=== PATIENT | female | born 1945 | race Caucasian/White ===

== ENCOUNTER 2020-04-03 06:09 | Inpatient (IN) | payer MEDICARE, OTHER ==
[~2020-04-03 06:09] MED LIST: Famotidine 20 MG/2 ML SDV IVPUSH SCH; Famotidine 20 MG/2 ML SDV ONE; Lactated Ringers 1,000 ML IV SCH; Ropivacaine 49.25 ML, Ketorolac 30 MG, EPINEPHrine 0.5 MG, cloNIDine 80 MCG in Sodium C... INJECT SCH; Scopolamine 1.5 MG Transdermal Patch TRDERM SCH
[2020-04-03] MEDS ORDERED: Propofol 200 MG/20 ML SDV ONE (07:22)
[2020-04-03] MEDS ORDERED: fentaNYL 100 MCG/2 ML SDV ONE (07:23)
[2020-04-03] MEDS ORDERED: Midazolam 1 MG/ML 2 ML SDV ONE (07:24)
[2020-04-03] MEDS ORDERED: Lidocaine 2% 5 ML SDV ONE (07:24)
--- NOTE | 2020-04-03 07:24 | PCM.PREANE ---
Preanesthetic Assessment - Anesthesia/Transfusion/Family Hx Anesthesia History: Prior Anesthesia Without Reaction Family History of Anesthesia Reaction: No Transfusion History: Unknown - Review of Systems General: No Symptoms Pulmonary: No Symptoms Cardiovascular: No Symptoms Gastrointestinal: No Symptoms Neurological: No Symptoms Other: Reports: None - Physical Assessment NPO Status Date: 04/02/20 Vital Signs: Last Vital Signs Temp 96.3 F L 04/03/20 06:23 Pulse 87 04/03/20 06:23 Resp 14 04/03/20 06:23 BP 141/92 H 04/03/20 06:23 Pulse Ox 93 L 04/03/20 06:23 Height: 5 ft 5 in Weight: 99.79 kg ASA Class: 2 Mental Status: Alert & Oriented x3 Airway Class: Mallampati = 2 Dentition: Reports: Normal Dentition ROM/Head Extension: Full Lungs: Clear to Auscultation, Normal Respiratory Effort Cardiovascular: Regular Rate, Regular Rhythm - Allergies Allergies/Adverse Reactions: Allergies Allergy/AdvReac Type Severity Reaction Status Date / Time No Known Allergies Allergy Verified 04/03/20 06:45 - Blood Blood Available: No - Anesthesia Plan Pre-Op Medication Ordered: None - Acknowledgements Anesthesia Type Planned: Spinal Pt an Appropriate Candidate for the Planned Anesthesia: Yes Alternatives and Risks of Anesthesia Discussed w Pt/Guardian: Yes Pt/Guardian Understands and Agrees with Anesthesia Plan: Yes Additional Comments: PMH: psvt, mild MR, cleared by Deep, he believes no hx of AMI, neg stress test. 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: Musculoskeletal History: Reports: Fracture, Osteoarthritis Other Musculoskeletal History: hx of fx foot Neurological History: Reports: None Psychiatric History: Reports: Anxiety Endocrine/Metabolic History: Reports: Obesity/BMI 30+ Hematologic History: Reports: None Immunologic History: Reports: None Oncologic (Cancer) History: Reports: None Dermatologic History: Reports: None - Infectious Disease History Infectious Disease History: Reports: Chicken Pox, Measles - Past Surgical History Head Surgeries/Procedures: Reports: None HEENT Surgical History: Reports: Tonsillectomy Respiratory Surgical History: Reports: None GI Surgical History: Reports: Appendectomy, Colonoscopy Female Surgical History: Reports: Tubal Ligation Other Female Surgeries/Procedures: Ureteral Reimplantation Musculoskeletal Surgical History: Reports: Knee Replacement - SUBSTANCE USE Smoking Status *Q: Former Smoker Tobacco Use Within Last Twelve Months: No Recreational Drug Use History: No - HOME MEDS Home Medications: Home Meds Acetaminophen with Codeine [Tylenol with Codeine #3 Tablet] 1 tab PO BID PRN 03/28/20 [History] Metoprolol Succinate [Toprol XL] 25 mg PO QAM 03/28/20 [History] Omeprazole 20 mg PO QAM 03/28/20 [History] Rosuvastatin Calcium 20 mg PO QAM 03/28/20 [History] - CURRENT (IN HOUSE) MEDS Current Meds: Current Medications Tranexamic Acid 1,000 mg/ (Sodium Chloride) 110 mls @ 600 mls/hr IV ASDIRECTED ONE Stop: 04/03/20 08:10 Ropivacaine 49.25 ml/Ketorolac Tromethamine 30 mg/Epinephrine HCl 0.5 mg/Clonidine HCl 80 mcg/ Sodium Chloride 75 mls @ 50 mls/sec INJECT ASDIRECTED ADRIANA Cefazolin Sodium/Dextrose 2 gm (/ Premix) 50 mls @ 100 mls/hr IV ONCALL ADRIANA Lactated Ringer's (Ringers, Lactated) 1,000 mls @ 100 mls/hr IV ASDIRECTED ADRIANA Last Admin: 04/03/20 06:52 Dose: 100 mls/hr Documented by: Famotidine 40 mg/ Sodium (Chloride) 20 mls @ 300 mls/hr IV ONARRIVE ONE Stop: 04/03/20 09:03 Scopolamine (Transderm-Scop) 1.5 mg TRDER ONARRIVE [facility] Last Admin: 04/03/20 06:56 Dose: 1.5 mg Documented by: Discontinued Medications Famotidine (Pepcid) 40 mg IVPUSH ONARRIVE [facility] Famotidine (Pepcid) Confirm Administered Dose 40 mg .ROUTE .STK-MED ONE Stop: 04/03/20 05:49 Last Admin: 04/03/20 06:55 Dose: 40 mg Documented by:
[2020-04-03] MEDS ORDERED: ceFAZolin/Dextrose,Iso-Osmotic 2 GM/50 ML Duplex Bag IV ONE (07:32)
[2020-04-03] MEDS ORDERED: Tranexamic Acid 1,000 MG in Sodium Chloride 0.9% 100 ML IV ONE (08:00)
[2020-04-03] MEDS ORDERED: ceFAZolin 2 GM in Premix Bag 1 BAG IV SCH (08:00)
[2020-04-03] MEDS ORDERED: Naloxone 0.4 MG/ML Syringe IVPUSH PRN (08:46)
[2020-04-03] MEDS ORDERED: EPINEPHrine 1:10,000 1 MG/10 ML Syringe IVPUSH PRN (08:46)
[2020-04-03] MEDS ORDERED: Albuterol 0.083% 2.5 MG/3 ML Neb Soln NEB PRN (08:46)
[2020-04-03] MEDS ORDERED: Atropine 0.1 MG/ML 10 ML Syringe IVPUSH PRN ×2 (08:46)
[2020-04-03] MEDS ORDERED: 50% Dextrose in Water 50 ML Syringe IVPUSH PRN (08:46)
[2020-04-03] MEDS ORDERED: SODIUM CHLORIDE 0.9% IV ONE (09:00)
[2020-04-03] MEDS ORDERED: FAMOTIDINE IV ONE (09:00)
[2020-04-03] MEDS ORDERED: Sodium Chloride 0.9% 2.5 ML Syringe FLUSH PRN (10:45)
[2020-04-03] MEDS ORDERED: Docusate Sodium 100 MG Cap PO PRN (10:45)
[2020-04-03] MEDS ORDERED: diphenhydrAMINE 25 MG Cap PO PRN (10:45)
[2020-04-03] MEDS ORDERED: Bisacodyl 10 MG Supp RECTAL PRN (10:45)
[2020-04-03] MEDS ORDERED: Aluminum Hydroxide/Magnesium Hydroxide/Simethicone Susp 30 ML Cup PO PRN (10:45)
[2020-04-03] MEDS ORDERED: Ondansetron 4 MG/2 ML SDV IVPUSH PRN (10:45)
[2020-04-03] MEDS ORDERED: Sodium Chloride 0.9% 10 ML Syringe FLUSH PRN (10:45)
--- NOTE | 2020-04-03 11:09 | CR ---
Left knee: AP and crosstable lateral views left knee were obtained. Comparison: Prio knee exam of 02/22/20. Knee prosthesis is seen. Components are aligned. Soft tissue air is noted from the surgical procedure. Underlying bony structures are intact. Impression: 1. Satisfactory postop radiographic appearance of recently placed left knee prosthesis. Diagnostic code #2 This report was dictated in MDT
--- NOTE | 2020-04-03 11:18 | PCM.OPNOTE ---
- General Post-Op/Procedure Note Date of Surgery/Procedure: 04/03/20 Operative Procedure(s): Left total knee arthroplasty Findings: Left knee medial compartment femur and tibia grade 4 arthritis with bony erosion of tibial plateau Lateral compartment femoral and tibial cartilage grade 1 Patellofemoral articular cartilage grade 1 Pre Op Diagnosis: Knee grade 4 medial compartment osteoarthritis Post-Op Diagnosis: Knee grade 4 medial compartment osteoarthritis Anesthesia Technique: Spinal Primary Surgeon: Rashawn Barahona Wrapper Sizer: Rebecca Pierson Wrapper Sizer Was Necessary: Retraction EBL in mLs: 10 Complications: None Condition: Good Free Text/Narrative:: Risks and benefits of total knee arthroplasty were discussed with the patient. Because of knee pain and diminished quality of life, the patient elected to proceed with surgery. Patient was taken to the operating room. After adequate spinal anesthesia, she was placed in a supine position. Tourniquet was placed from the left proximal thigh. Left lower extremity is prepped and draped in usual sterile manner. The leg elevated and the tourniquet inflated. Midline incision was made with a scalpel. Subcutaneous tissue incised electrocautery. Medial parapatellar arthrotomy was performed with electrocautery. Patella was everted. Intraoperative findings are noted above. Meniscal remnant and ACL were excised and a medial release was performed subperiosteally. The knee was flexed and the distal femoral cut was made with an intramedullary alignment guide. 2 additional millimeters were removed on the distal femur to remove the trochlear groove cartilage. [employer] implants were used. The femur was sized to a 4 and cut with the constrained cutting guide. The trial component fit well. The lug holes were punched. The tibia was cut with an intramedullary alignment guide. The tibia was sized to #4. The stem was punched and the keel was punched. Eburnated bone was drilled for cement interdigitation. A trial with a 9 mm polyethylene insert noted excellent range of motion and stability throughout the range of motion. Trial components were removed and any meniscal remnant or osteophytes were also removed. The patella was resurfaced and sized to a 32 mm component. The components were sequentially cemented starting with the tibia component, inserting the polyethylene insert, femoral component, and the patella component. Excess cement was removed and the cement was allowed to harden. Periarticular injections were performed for pain management. The knee was reinspected for any loose bodies, cement, or other debris and the knee was irrigated. The arthrotomy was closed with interrupted #1 Vicryl suture. Subcutaneous tissue was closed with 2-0 interrupted Vicryl suture. Running absorbable subcuticular suture for final skin closure with Steri-Strips. Sterile dressing was applied and patient was accompanied to the recovery room in stable condition. Pain management. Oxycodone taper, acetaminophen, and NSAIDs as able. Venous thromboembolism prophylaxis: Enteric-coated aspirin daily for 90 days. Prophylactic antibiotics: Ancef 2 doses. Restrictions: Patient is fully weightbearing on her left lower extremity and she received physical therapy according to the total knee arthroplasty protocol. She has no restrictions.
[2020-04-03] MEDS: fentaNYL 100 MCG/2 ML SDV IVPUSH PRN ×2 (11:25→11:31)
[2020-04-03] MEDS: oxyCODONE 5 MG Tab PO PRN ×3 (12:41→23:54)
[2020-04-03] MEDS: Ketorolac 15 MG/ML SDV IVPUSH SCH ×2 (14:28→19:53)
--- NOTE | 2020-04-03 14:56 | PCM.CONS ---
H&P History of Present Illness - General Date of Service: 04/03/20 Admit Problem/Dx: Admission Diagnosis/Problem Admission Diagnosis/Problem Knee pain - History of Present Illness Initial Comments - Free Text/Narative: 74 yo female with pmh of SVT who was admitted following elective left TKA. Patient reports tolerating the surgery fine. In October she was admitted for SVT for which she was restarted on her metoprolol. She took her metoprolol this morning and reports she has not had any difficulty with her SVT since her admission in October. Left Knee Pain Score (Numeric/FACES): 10 - Related Data Allergies/Adverse Reactions: Allergies Allergy/AdvReac Type Severity Reaction Status Date / Time No Known Allergies Allergy Verified 04/03/20 06:45 Home Medications: Home Meds Acetaminophen with Codeine [Tylenol with Codeine #3 Tablet] 30 - 300 mg PO BID PRN 03/28/20 [History] Metoprolol Succinate [Toprol XL] 25 mg PO QAM 03/28/20 [History] Omeprazole 20 mg PO QAM 03/28/20 [History] Rosuvastatin Calcium 20 mg PO QAM 03/28/20 [History] Past Medical History - Past Health History Medical/Surgical History: Denies Medical/Surgical History HEENT History: Reports: Cataract, Other (See Below) Other HEENT History: wears glasses Cardiovascular History: Reports: Arrhythmia Other Cardiovascular History: hx of PSVT Respiratory History: Reports: None Gastrointestinal History: Reports: Hiatal Hernia Genitourinary History: Reports: UTI, Recurrent Other Genitourinary History: frequent UTI before Ureteral reimplantation 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: Musculoskeletal History: Reports: Fracture, Osteoarthritis Other Musculoskeletal History: hx of fx foot Neurological History: Reports: None Psychiatric History: Reports: Anxiety Endocrine/Metabolic History: Reports: Obesity/BMI 30+ Hematologic History: Reports: None Immunologic History: Reports: None Oncologic (Cancer) History: Reports: None Dermatologic History: Reports: None - Infectious Disease History Infectious Disease History: Reports: Chicken Pox, Measles - Past Surgical History Head Surgeries/Procedures: Reports: None HEENT Surgical History: Reports: Tonsillectomy Respiratory Surgical History: Reports: None GI Surgical History: Reports: Appendectomy, Colonoscopy Female Surgical History: Reports: Tubal Ligation Other Female Surgeries/Procedures: Ureteral Reimplantation Musculoskeletal Surgical History: Reports: Knee Replacement Social & Family History - Family History Family Medical History: Noncontributory - Tobacco Use Smoking Status *Q: Former Smoker Tobacco Use Comment: quit 4 years ago - Caffeine Use Caffeine Use: Reports: None - Recreational Drug Use Recreational Drug Use: No Drug Use in Last 12 Months: No H&P Review of Systems - Review of Systems: Review Of Systems: Comprehensive ROS is negative, except as noted in HPI. Exam - Exam Exam: See Below - Vital Signs Vital Signs: Last Vital Signs Temp 36.4 C 04/03/20 10:43 Pulse 64 04/03/20 11:39 Resp 12 04/03/20 11:39 BP 119/80 04/03/20 11:39 Pulse Ox 92 L 04/03/20 11:55 Weight: 99.79 kg - Exam General: Alert, Oriented HEENT: Mucosa Moist & [place] Lungs: Clear to Auscultation, Normal Respiratory Effort Cardiovascular: Regular Rate, Regular Rhythm GI/Abdominal Exam: Normal Bowel Sounds, Soft, Non-Tender Skin: Warm, Dry, Intact Neurological: Cranial Nerves Intact - Patient Data Lab Results Last 24 hrs: Laboratory Results - last 24 hr 04/03/20 04/03/20 Range/Units 06:20 06:44 SARS Virus RNA (PCR) NEGATIVE (NEGATIVE) Blood Type O POSITIVE Antibody Screen NEGATIVE Result Diagrams: 04/04/20 06:04 04/04/20 06:04 Sepsis Event Note - Evaluation Sepsis Screening Result: No Definite Risk - Focused Exam Vital Signs: Vital Signs Temp Pulse Resp BP Pulse Ox Pulse Ox 04/03/20 11:55 92 L 04/03/20 11:39 64 12 119/80 94 L 04/03/20 11:34 61 12 112/73 93 L 04/03/20 11:30 64 12 122/61 92 L 04/03/20 11:24 62 12 120/79 93 L 04/03/20 11:19 62 11 L 139/74 93 L 04/03/20 11:14 63 22 H 125/65 93 L 04/03/20 11:09 62 17 122/72 93 L 04/03/20 11:04 64 15 118/73 92 L 04/03/20 10:59 67 12 109/64 92 L 04/03/20 10:54 66 12 106/47 L 92 L 04/03/20 10:49 70 12 100/35 L 92 L 04/03/20 10:43 36.4 C 77 18 91/44 L 91 L 04/03/20 06:23 35.7 C L 87 14 141/92 H 93 L Date Exam was Performed: 04/04/20 Time Exam was Performed: 09:30 Consult PN Assessment/Plan Procedures: Procedures ASSAY OF MAGNESIUM (11/24/19) ASSAY OF NATRIURETIC PEPTIDE (11/24/19) ASSAY OF TROPONIN QUANT (11/24/19) BLOOD TYPING SEROLOGIC ABO (01/04/19) BLOOD TYPING SEROLOGIC RH(D) (01/04/19) CARDIOVASCULAR STRESS TEST (12/06/19) COMPLETE CBC AUTOMATED (11/24/19) COMPLETE CBC W/AUTO DIFF WBC (03/16/20) COMPREHEN METABOLIC PANEL (03/16/20) CT ANGIOGRAPHY CHEST (11/24/19) CT HEAD/BRAIN W/O DYE (01/30/17) CT HRT W/O DYE W/CA TEST (12/07/19) DECALCIFY TISSUE (01/04/19) DRAIN/INJ JOINT/BURSA W/O US (01/26/19) ELECTROCARDIOGRAM TRACING (11/24/19) EMERGENCY DEPT VISIT (11/24/19) EMERGENCY DEPT VISIT (01/30/17) EXTREMITY STUDY (10/25/19) GLYCOSYLATED HEMOGLOBIN TEST (12/11/18) HEMATOCRIT (01/04/19) HEMOGLOBIN (01/04/19) HPV HIGH-RISK TYPES (02/12/19) HT MUSCLE IMAGE SPECT MULT (12/06/19) HYDRATE IV INFUSION ADD-ON (11/24/19) IMMUNIZATION ADMIN (07/31/15) LIPID PANEL (02/11/20) METABOLIC PANEL TOTAL CA (11/24/19) MRI JNT OF LWR EXTRE W/O DYE (11/10/18) OFFICE/OUTPATIENT VISIT EST (12/07/19) OFFICE/OUTPATIENT VISIT EST (10/25/19) OFFICE/OUTPATIENT VISIT EST (01/26/19) OFFICE/OUTPATIENT VISIT EST (11/10/18) OFFICE/OUTPATIENT VISIT NEW (03/18/19) OFFICE/OUTPATIENT VISIT NEW (12/11/18) PPSV23 VACC 2 YRS+ SUBQ/IM (07/31/15) PROTHROMBIN TIME (03/16/20) PT EVAL LOW COMPLEX 20 MIN (01/26/19) RBC ANTIBODY SCREEN (01/04/19) ROUTINE VENIPUNCTURE (03/16/20) TDAP VACCINE 7 YRS/> IM (07/31/15) THER/PROPH/DIAG INJ IV PUSH (11/24/19) THERAPEUTIC ACTIVITIES (03/04/19) THERAPEUTIC EXERCISES (02/25/19) TISSUE EXAM BY PATHOLOGIST (01/04/19) TOTAL KNEE ARTHROPLASTY (01/04/19) TTE W/DOPPLER COMPLETE (11/16/19) URINALYSIS AUTO W/O SCOPE (03/16/20) URINALYSIS AUTO W/SCOPE (03/18/19) URINE CULTURE/COLONY COUNT (12/11/18) VASOPNEUMATIC DEVICE THERAPY (02/25/19) X-RAY EXAM CHEST 1 VIEW (11/24/19) X-RAY EXAM CHEST 2 VIEWS (03/16/20) X-RAY EXAM KNEE 4 OR MORE (02/22/20) X-RAY EXAM OF KNEE 1 OR 2 (01/04/19) X-RAY EXAM OF SHOULDER (08/27/17) Problem List Initiated/Reviewed/Updated: Yes My Orders Last 24 Hours: My Active Orders 04/04/20 05:11 BASIC METABOLIC PANEL,BMP [CHEM] AM CBC WITH AUTO DIFF [HEME] AM MAGNESIUM [CHEM] AM 04/04/20 09:00 Metoprolol Succinate [Toprol XL] 25 mg PO QAM Omeprazole [Omeprazole] 20 mg PO QAM Rosuvastatin Calcium [Rosuvastatin Calcium] 20 mg PO QAM Plan: 74 yo female admitted following left TKA. I would recommend continuing her metoprolol daily.
[2020-04-03] MEDS: ceFAZolin 2 GM in Premix Bag 1 BAG IV SCH ×2 (15:58→23:54)
[2020-04-03] MEDS: Aspirin 325 MG Tab PO SCH (18:46)
[2020-04-03] MEDS: Acetaminophen 325 MG Tab PO PRN (21:56)
[2020-04-04] MEDS: Ketorolac 15 MG/ML SDV IVPUSH SCH (02:55)
[2020-04-04 06:52] LABS: BLOOD UREA NITROGEN,BUN 9 mg/dL (7.0-18.0); CARBON DIOXIDE,CO2 27.7 mmol/L (21.0-32.0); CHLORIDE,CL 101 mmol/L (98-107); GLUCOSE RANDOM 130 mg/dL (74-106); POTASSIUM,K 3.9 mmol/L (3.5-5.1); SODIUM,NA 137 mmol/L (136-145)
--- NOTE | 2020-04-04 08:20 | PCM48HPAN ---
Post Anesthesia Note - EVALUATION WITHIN 48HRS OF ANESTHETIC Vital Signs in Normal Range: Yes Patient Participated in Evaluation: Yes Respiratory Function Stable: Yes Airway Patent: Yes Cardiovascular Function Stable: Yes Hydration Status Stable: Yes Pain Control Satisfactory: No (patient complaining knee is very tight) Nausea and Vomiting Control Satisfactory: Yes Mental Status Recovered: Yes Vital Signs: Last Vital Signs Temp 36.7 C 04/04/20 04:40 Pulse 82 04/04/20 04:40 Resp 16 04/04/20 04:40 BP 118/72 04/04/20 04:40 Pulse Ox 92 L 04/04/20 04:40
[2020-04-04] MEDS ORDERED: Famotidine 20 MG Tab PO SCH (09:00)
[2020-04-04] MEDS: oxyCODONE 5 MG Tab PO PRN ×4 (09:18→22:41)
[2020-04-04] MEDS: Metoprolol Succinate 25 MG Tab.ER PO SCH (09:20)
[2020-04-04] MEDS: Rosuvastatin 10 MG Tab PO SCH (09:21)
[2020-04-04] MEDS: Aspirin 325 MG Tab PO SCH (09:21)
[2020-04-04] MEDS: Polyethylene Glycol 3350 Powder 17 GM Packet PO SCH (09:22)
--- NOTE | 2020-04-04 09:33 | PCM.CONSN ---
- General Info Date of Service: 04/04/20 - Review of Systems Systems Review Comment:: reports left knee pain. - Patient Data Vitals - Most Recent: Last Vital Signs Temp 36.7 C 04/04/20 04:40 Pulse 93 04/04/20 09:20 Resp 16 04/04/20 04:40 BP 128/64 04/04/20 09:20 Pulse Ox 92 L 04/04/20 04:40 Weight - Most Recent: 99.79 kg I&O - Last 24 Hours: Intake & Output 04/03/20 04/04/20 04/04/20 22:59 06:59 14:59 Intake Total 651 400 Output Total 400 1450 Balance 251 -1050 Lab Results Last 24 Hours: Laboratory Results - last 24 hr 04/04/20 04/04/20 Range/Units 06:04 06:04 WBC 9.32 (4.0-11.0) K/uL RBC 4.10 L (4.30-5.90) M/uL Hgb 11.5 L (12.0-16.0) g/dL Hct 37.1 (36.0-46.0) % MCV 90.5 (80.0-98.0) fL MCH 28.0 (27.0-32.0) pg MCHC 31.0 (31.0-37.0) g/dL RDW Std Deviation 45.3 (28.0-62.0) fl RDW Coeff of Nighat 14 (11.0-15.0) % Plt Count 256 (150-400) K/uL MPV 9.70 (7.40-12.00) fL Neut % (Auto) 78.9 (48.0-80.0) % Lymph % (Auto) 12.9 L (16.0-40.0) % [place] % (Auto) 7.7 (0.0-15.0) % Eos % (Auto) 0.3 (0.0-7.0) % Baso % (Auto) 0.2 (0.0-1.5) % Neut # (Auto) 7.4 H (1.4-5.7) K/uL Lymph # (Auto) 1.2 (0.6-2.4) K/uL [place] # (Auto) 0.7 (0.0-0.8) K/uL Eos # (Auto) 0.0 (0.0-0.7) K/uL Baso # (Auto) 0.0 (0.0-0.1) K/uL Nucleated RBC % 0.0 /100WBC Nucleated RBCs # 0 K/uL Sodium 137 (136-145) mmol/L Potassium 3.9 (3.5-5.1) mmol/L Chloride 101 (98-107) mmol/L Carbon Dioxide 27.7 (21.0-32.0) mmol/L BUN 9 (7.0-18.0) mg/dL Creatinine 0.6 (0.6-1.0) mg/dL Est Cr Clr Drug Dosing 76.26 mL/min Estimated GFR (MDRD) > 60.0 ml/min Glucose 130 H (74-106) mg/dL Calcium 8.8 (8.5-10.1) mg/dL Magnesium 1.5 L (1.8-2.4) mg/dL Med Orders - Current: Current Medications Acetaminophen (Tylenol) 650 mg PO Q6H PRN PRN Reason: Pain Last Admin: 04/03/20 21:56 Dose: 650 mg Documented by: Al Hydroxide/Mg Hydroxide (Mag-Al Plus) 30 ml PO Q4H PRN PRN Reason: Indigestion Aspirin (Aspirin) 325 mg PO DAILY COUNTS INCLUDE 234 BEDS AT THE [facility] Last Admin: 04/04/20 09:21 Dose: 325 mg Documented by: Bisacodyl (Dulcolax) 10 mg RECTAL DAILY PRN PRN Reason: Constipation Diphenhydramine HCl (Benadryl) 25 - 50 mg PO Q6H PRN PRN Reason: Itching Docusate Sodium (Colace) 100 mg PO BID PRN PRN Reason: Constipation Famotidine (Pepcid) 40 mg PO DAILY COUNTS INCLUDE 234 BEDS AT THE [facility] Lactated Ringer's (Ringers, Lactated) 1,000 mls @ 100 mls/hr IV ASDIRECTED COUNTS INCLUDE 234 BEDS AT THE [facility] Last Admin: 04/03/20 06:52 Dose: 100 mls/hr Documented by: Ibuprofen (Motrin) 600 mg PO Q6H PRN PRN Reason: Pain Metoprolol Succinate (Toprol Xl) 25 mg PO QAM COUNTS INCLUDE 234 BEDS AT THE [facility] Last Admin: 04/04/20 09:20 Dose: 25 mg Documented by: Omeprazole (Omeprazole) 20 mg PO [place] Ondansetron HCl (Zofran) 4 mg IVPUSH Q6H PRN PRN Reason: Nausea/Vomiting Oxycodone HCl (Oxycodone) 5 - 10 mg PO Q4H PRN PRN Reason: Pain Last Admin: 04/04/20 09:18 Dose: 5 mg Documented by: Polyethylene Glycol (Miralax) 17 gm PO DAILY COUNTS INCLUDE 234 BEDS AT THE [facility] Last Admin: 04/04/20 09:22 Dose: 17 gm Documented by: Rosuvastatin Calcium (Crestor) 20 mg PO QAM COUNTS INCLUDE 234 BEDS AT THE [facility] Last Admin: 04/04/20 09:21 Dose: 20 mg Documented by: Scopolamine (Transderm-Scop) 1.5 mg TRDERM ONARRIVE COUNTS INCLUDE 234 BEDS AT THE [facility] Last Admin: 04/03/20 06:56 Dose: 1.5 mg Documented by: Sodium Chloride (Saline Flush) 10 ml FLUSH ASDIRECTED PRN PRN Reason: Keep Vein Open Sodium Chloride (Saline Flush) 2.5 ml FLUSH ASDIRECTED PRN PRN Reason: Keep Vein Open Discontinued Medications Albuterol (Proventil Neb Soln) 2.5 mg NEB ONETIME PRN PRN Reason: Wheezing Atropine Sulfate (Atropine 0.1 Mg/Ml) 0.5 mg IVPUSH ASDIRECTED PRN PRN Reason: Hypo-perfusion Atropine Sulfate (Atropine 0.1 Mg/Ml) 1 mg IVPUSH ASDIRECTED PRN PRN Reason: Hypo-Perfusion Cefazolin Sodium/Dextrose (Ancef) Confirm Administered Dose 2 gm IV .STK-MED ONE Stop: 04/03/20 07:33 Dextrose/Water (Dextrose 50% In Water) 50 ml IVPUSH ASDIRECTED PRN PRN Reason: Hypoglycemia Epinephrine HCl (Epinephrine 1:10,000) 1 mg IVPUSH ASDIRECTED PRN PRN Reason: ACLS Guidelines Famotidine (Pepcid) 40 mg IVPUSH ONARRIVE COUNTS INCLUDE 234 BEDS AT THE [facility] Famotidine (Pepcid) Confirm Administered Dose 40 mg .ROUTE .STK-MED ONE Stop: 04/03/20 05:49 Last Admin: 04/03/20 06:55 Dose: 40 mg Documented by: Fentanyl (Sublimaze) Confirm Administered Dose 100 mcg .ROUTE .STK-MED ONE Stop: 04/03/20 07:24 Fentanyl (Sublimaze) 50 mcg IVPUSH Q5M PRN PRN Reason: Pain Last Admin: 04/03/20 11:31 Dose: 50 mcg Documented by: Tranexamic Acid 1,000 mg/ (Sodium Chloride) 110 mls @ 600 mls/hr IV ASDIRECTED ONE Stop: 04/03/20 08:10 Last Admin: 04/04/20 08:19 Dose: Not Given Documented by: Ropivacaine 49.25 ml/Ketorolac Tromethamine 30 mg/Epinephrine HCl 0.5 mg/Clonidine HCl 80 mcg/ Sodium Chloride 75 mls @ 50 mls/sec INJECT ASDIRECTED COUNTS INCLUDE 234 BEDS AT THE [facility] Cefazolin Sodium/Dextrose 2 gm (/ Premix) 50 mls @ 100 mls/hr IV ONCALL COUNTS INCLUDE 234 BEDS AT THE [facility] Famotidine 40 mg/ Sodium (Chloride) 20 mls @ 300 mls/hr IV ONARRIVE ONE Stop: 04/03/20 09:03 Last Admin: 04/03/20 15:47 Dose: Not Given Documented by: Acetaminophen (Ofirmev) Confirm Administered Dose 100 mls @ as directed .ROUTE .STK-MED ONE Stop: 04/03/20 07:19 Cefazolin Sodium/Dextrose 2 gm (/ Premix) 50 mls @ 100 mls/hr IV Q8H COUNTS INCLUDE 234 BEDS AT THE [facility] Stop: 04/04/20 00:29 Last Admin: 04/03/20 23:54 Dose: 100 mls/hr Documented by: Ketorolac Tromethamine (Toradol) 15 mg IVPUSH Q6H COUNTS INCLUDE 234 BEDS AT THE [facility] Stop: 04/04/20 05:00 Last Admin: 04/04/20 02:55 Dose: 15 mg Documented by: Lidocaine (Xylocaine-Mpf 2%) Confirm Administered Dose 5 ml .ROUTE .STK-MED ONE Stop: 04/03/20 07:25 Midazolam HCl (Versed 1 Mg/Ml) Confirm Administered Dose 2 mg .ROUTE .STK-MED ONE Stop: 04/03/20 07:25 Naloxone HCl (Narcan) 0.1 mg IVPUSH ASDIRECTED PRN PRN Reason: Respiratory Depression Propofol (Diprivan 20 Ml) Confirm Administered Dose 600 mg .ROUTE .STK-MED ONE Stop: 04/03/20 07:23 Tranexamic Acid (Cyklokapron) Confirm Administered Dose 2,000 mg .ROUTE .STK-MED ONE Stop: 04/03/20 07:19 - Exam General: Alert, Oriented Lungs: Clear to Auscultation, Normal Respiratory Effort Cardiovascular: Regular Rate, Regular Rhythm GI/Abdominal Exam: Normal Bowel Sounds, Soft, Non-Tender, No Distention Neurological: No New Focal Deficit Sepsis Event Note - Evaluation Sepsis Screening Result: No Definite Risk - Focused Exam Vital Signs: Vital Signs Temp Pulse Pulse Resp BP BP Pulse Ox 04/04/20 09:20 93 128/64 04/04/20 04:40 36.7 C 82 16 118/72 92 L 04/04/20 00:00 36.6 C 78 17 129/72 92 L Date Exam was Performed: 04/04/20 Time Exam was Performed: 09:32 Consult PN Assessment/Plan Procedures: Procedures ASSAY OF MAGNESIUM (11/24/19) ASSAY OF NATRIURETIC PEPTIDE (11/24/19) ASSAY OF TROPONIN QUANT (11/24/19) BLOOD TYPING SEROLOGIC ABO (01/04/19) BLOOD TYPING SEROLOGIC RH(D) (01/04/19) CARDIOVASCULAR STRESS TEST (12/06/19) COMPLETE CBC AUTOMATED (11/24/19) COMPLETE CBC W/AUTO DIFF WBC (03/16/20) COMPREHEN METABOLIC PANEL (03/16/20) CT ANGIOGRAPHY CHEST (11/24/19) CT HEAD/BRAIN W/O DYE (01/30/17) CT HRT W/O DYE W/CA TEST (12/07/19) DECALCIFY TISSUE (01/04/19) DRAIN/INJ JOINT/BURSA W/O US (01/26/19) ELECTROCARDIOGRAM TRACING (11/24/19) EMERGENCY DEPT VISIT (11/24/19) EMERGENCY DEPT VISIT (01/30/17) EXTREMITY STUDY (10/25/19) GLYCOSYLATED HEMOGLOBIN TEST (12/11/18) HEMATOCRIT (01/04/19) HEMOGLOBIN (01/04/19) HPV HIGH-RISK TYPES (02/12/19) HT MUSCLE IMAGE SPECT MULT (12/06/19) HYDRATE IV INFUSION ADD-ON (11/24/19) IMMUNIZATION ADMIN (07/31/15) LIPID PANEL (02/11/20) METABOLIC PANEL TOTAL CA (11/24/19) MRI JNT OF LWR EXTRE W/O DYE (11/10/18) OFFICE/OUTPATIENT VISIT EST (12/07/19) OFFICE/OUTPATIENT VISIT EST (10/25/19) OFFICE/OUTPATIENT VISIT EST (01/26/19) OFFICE/OUTPATIENT VISIT EST (11/10/18) OFFICE/OUTPATIENT VISIT NEW (03/18/19) OFFICE/OUTPATIENT VISIT NEW (12/11/18) PPSV23 VACC 2 YRS+ SUBQ/IM (07/31/15) PROTHROMBIN TIME (03/16/20) PT EVAL LOW COMPLEX 20 MIN (01/26/19) RBC ANTIBODY SCREEN (01/04/19) ROUTINE VENIPUNCTURE (03/16/20) TDAP VACCINE 7 YRS/> IM (07/31/15) THER/PROPH/DIAG INJ IV PUSH (11/24/19) THERAPEUTIC ACTIVITIES (03/04/19) THERAPEUTIC EXERCISES (02/25/19) TISSUE EXAM BY PATHOLOGIST (01/04/19) TOTAL KNEE ARTHROPLASTY (01/04/19) TTE W/DOPPLER COMPLETE (11/16/19) URINALYSIS AUTO W/O SCOPE (03/16/20) URINALYSIS AUTO W/SCOPE (03/18/19) URINE CULTURE/COLONY COUNT (12/11/18) VASOPNEUMATIC DEVICE THERAPY (02/25/19) X-RAY EXAM CHEST 1 VIEW (11/24/19) X-RAY EXAM CHEST 2 VIEWS (03/16/20) X-RAY EXAM KNEE 4 OR MORE (02/22/20) X-RAY EXAM OF KNEE 1 OR 2 (01/04/19) X-RAY EXAM OF SHOULDER (08/27/17) Problem List Initiated/Reviewed/Updated: Yes My Orders Last 24 Hours: My Active Orders 04/04/20 09:00 Metoprolol Succinate [Toprol XL] 25 mg PO QAM Omeprazole 20 mg PO QAM Rosuvastatin [Crestor] 20 mg PO QAM Plan: 74 yo female with pmh of left TKA. Would continue metoprolol for pmh of SVT.
[2020-04-04] MEDS: Omeprazole 20 MG Cap.CR PO SCH (09:42)
[2020-04-04] MEDS: Acetaminophen 325 MG Tab PO PRN (12:04)
--- NOTE | 2020-04-05 07:58 | PCM.SN.2 ---
- Free Text/Narrative Note: Ortho Note for April 04, 2020 POD#1 left TKA Out of bed eating lunch Reports pain still significant but managed with oral oxycodone Progressing in PT continue PT Will need at least another day, will reassess on 04/05/20 ASA for 90 days for VTE prophylaxis, no personal or family h/o VTE events Patient thinking she will be able to DC to home
[2020-04-05] MEDS: Aspirin 325 MG Tab PO SCH (09:41)
[2020-04-05] MEDS: Rosuvastatin 10 MG Tab PO SCH (09:42)
[2020-04-05] MEDS: Metoprolol Succinate 25 MG Tab.ER PO SCH (09:43)
[2020-04-05] MEDS: Polyethylene Glycol 3350 Powder 17 GM Packet PO SCH (09:44)
[2020-04-05] MEDS: Omeprazole 20 MG Cap.CR PO SCH (09:44)
[2020-04-05] MEDS: oxyCODONE 5 MG Tab PO PRN ×2 (13:54→18:22)
--- NOTE | 2020-04-05 13:57 | PCM.SN.2 ---
- Free Text/Narrative Note: Ortho Note POD#2 left TKA Pain managed, continue oral pain medications and cryotherapy Progressing in PT Aspirin for 90 days for VTE prophylaxis Plan DC to home tomorrow if cleared by PT
--- NOTE | 2020-04-05 14:01 | PCM.CONSN ---
- General Info Date of Service: 04/05/20 - Review of Systems Systems Review Comment:: no chest pain, no palpitations, no shortness of breath. - Patient Data Vitals - Most Recent: Last Vital Signs Temp 36.7 C 04/05/20 12:16 Pulse 106 H 04/05/20 12:16 Resp 18 04/05/20 12:16 BP 116/84 04/05/20 12:16 Pulse Ox 92 L 04/05/20 12:16 Weight - Most Recent: 99.79 kg I&O - Last 24 Hours: Intake & Output 04/04/20 04/05/20 04/05/20 22:59 06:59 14:59 Intake Total 470 1250 Output Total 300 1700 Balance 170 -450 Lab Results Last 24 Hours: Laboratory Results - last 24 hr 04/05/20 Range/Units 05:53 Hgb 10.8 L (12.0-16.0) g/dL Hct 34.2 L (36.0-46.0) % Med Orders - Current: Current Medications Acetaminophen (Tylenol) 650 mg PO Q6H PRN PRN Reason: Pain Last Admin: 04/04/20 12:04 Dose: 650 mg Documented by: Al Hydroxide/Mg Hydroxide (Mag-Al Plus) 30 ml PO Q4H PRN PRN Reason: Indigestion Aspirin (Aspirin) 325 mg PO DAILY [facility] Last Admin: 04/05/20 09:41 Dose: 325 mg Documented by: Bisacodyl (Dulcolax) 10 mg RECTAL DAILY PRN PRN Reason: Constipation Diphenhydramine HCl (Benadryl) 25 - 50 mg PO Q6H PRN PRN Reason: Itching Docusate Sodium (Colace) 100 mg PO BID PRN PRN Reason: Constipation Lactated Ringer's (Ringers, Lactated) 1,000 mls @ 100 mls/hr IV ASDIRECTED [facility] Last Admin: 04/03/20 06:52 Dose: 100 mls/hr Documented by: Ibuprofen (Motrin) 600 mg PO Q6H PRN PRN Reason: Pain Metoprolol Su[facility]inate ([facility]l) [facility] [place] Last Admin: 04/05/20 09:43 Dose: 25 mg Documented by: Omeprazole (Omeprazole) [facility] [place] Last Admin: 04/05/20 09:44 Dose: 20 mg Documented by: Ondansetron HCl (Zofran) 4 mg IVPUSH Q6H PRN PRN Reason: Nausea/Vomiting Oxycodone HCl (Oxycodone) 5 - 10 mg PO Q4H PRN PRN Reason: Pain Last Admin: 04/05/20 13:54 Dose: 5 mg Documented by: Polyethylene Glycol (Miralax) 17 gm PO DAILY [facility] Last Admin: 04/05/20 09:44 Dose: 17 gm Documented by: Rosuvastatin Calcium (Crestor) 20 mg PO QAM [facility] Last Admin: 04/05/20 09:42 Dose: 20 mg Documented by: Scopolamine (Transderm-Scop) 1.5 mg TRDERM ONARRIVE [facility] Last Admin: 04/03/20 06:56 Dose: 1.5 mg Documented by: Sodium Chloride (Saline Flush) 10 ml FLUSH ASDIRECTED PRN PRN Reason: Keep Vein Open Sodium Chloride (Saline Flush) 2.5 ml FLUSH ASDIRECTED PRN PRN Reason: Keep Vein Open Discontinued Medications Albuterol (Proventil Neb Soln) 2.5 mg NEB ONETIME PRN PRN Reason: Wheezing Atropine Sulfate (Atropine 0.1 Mg/Ml) 0.5 mg IVPUSH ASDIRECTED PRN PRN Reason: Hypo-perfusion Atropine Sulfate (Atropine 0.1 Mg/Ml) 1 mg IVPUSH ASDIRECTED PRN PRN Reason: Hypo-Perfusion Cefazolin Sodium/Dextrose (Ancef) Confirm Administered Dose 2 gm IV .STK-MED ONE Stop: 04/03/20 07:33 Dextrose/Water (Dextrose 50% In Water) 50 ml IVPUSH ASDIRECTED PRN PRN Reason: Hypoglycemia Epinephrine HCl (Epinephrine 1:10,000) 1 mg IVPUSH ASDIRECTED PRN PRN Reason: ACLS Guidelines Famotidine (Pepcid) 40 mg IVPUSH ONARRIVE [facility] Famotidine (Pepcid) Confirm Administered Dose 40 mg .ROUTE .STK-MED ONE Stop: 04/03/20 05:49 Last Admin: 04/03/20 06:55 Dose: 40 mg Documented by: Fentanyl (Sublimaze) Confirm Administered Dose 100 mcg .ROUTE .STK-MED ONE Stop: 04/03/20 07:24 Fentanyl (Sublimaze) 50 mcg IVPUSH Q5M PRN PRN Reason: Pain Last Admin: 04/03/20 11:31 Dose: 50 mcg Documented by: Tranexamic Acid 1,000 mg/ (Sodium Chloride) 110 mls @ 600 mls/hr IV ASDIRECTED ONE Stop: 04/03/20 08:10 Last Admin: 04/04/20 08:19 Dose: Not Given Documented by: Ropivacaine 49.25 ml/Ketorolac Tromethamine 30 mg/Epinephrine HCl 0.5 mg/Clonidine HCl 80 mcg/ Sodium Chloride 75 mls @ 50 mls/sec INJECT ASDIRECTED [facility] Cefazolin Sodium/Dextrose 2 gm (/ Premix) 50 mls @ 100 mls/hr IV ONCALL [facility] Famotidine 40 mg/ Sodium (Chloride) 20 mls @ 300 mls/hr IV ONARRIVE ONE Stop: 04/03/20 09:03 Last Admin: 04/03/20 15:47 Dose: Not Given Documented by: Acetaminophen (Ofirmev) Confirm Administered Dose 100 mls @ as directed .ROUTE .STK-MED ONE Stop: 04/03/20 07:19 Cefazolin Sodium/Dextrose 2 gm (/ Premix) 50 mls @ 100 mls/hr IV Q8H [facility] Stop: 04/04/20 00:29 Last Admin: 04/03/20 23:54 Dose: 100 mls/hr Documented by: Ketorolac Tromethamine (Toradol) 15 mg IVPUSH Q6H [facility] Stop: 04/04/20 05:00 Last Admin: 04/04/20 02:55 Dose: 15 mg Documented by: Lidocaine (Xylocaine-Mpf 2%) Confirm Administered Dose 5 ml .ROUTE .STK-MED ONE Stop: 04/03/20 07:25 Midazolam HCl (Versed 1 Mg/Ml) Confirm Administered Dose 2 mg .ROUTE .STK-MED ONE Stop: 04/03/20 07:25 Naloxone HCl (Narcan) 0.1 mg IVPUSH ASDIRECTED PRN PRN Reason: Respiratory Depression Propofol (Diprivan 20 Ml) Confirm Administered Dose 600 mg .ROUTE .STK-MED ONE Stop: 04/03/20 07:23 Tranexamic Acid (Cyklokapron) Confirm Administered Dose 2,000 mg .ROUTE .STK-MED ONE Stop: 04/03/20 07:19 - Exam General: Alert, Oriented Neck: Supple Lungs: Clear to Auscultation, Normal Respiratory Effort Cardiovascular: Regular Rate, Regular Rhythm Neurological: No New Focal Deficit Sepsis Event Note - Evaluation Sepsis Screening Result: No Definite Risk - Focused Exam Vital Signs: Vital Signs Temp Pulse Pulse Resp BP BP Pulse Ox 04/05/20 12:16 36.7 C 106 H 18 116/84 92 L 04/05/20 09:43 107 H 130/83 04/05/20 08:00 36.7 C 114 H 30 H 125/75 91 L 04/05/20 04:00 37.0 C 107 H 18 122/99 H 92 L Date Exam was Performed: 04/05/20 Time Exam was Performed: 13:59 Consult PN Assessment/Plan Procedures: Procedures ASSAY OF MAGNESIUM (11/24/19) ASSAY OF NATRIURETIC PEPTIDE (11/24/19) ASSAY OF TROPONIN QUANT (11/24/19) BLOOD TYPING SEROLOGIC ABO (01/04/19) BLOOD TYPING SEROLOGIC RH(D) (01/04/19) CARDIOVASCULAR STRESS TEST (12/06/19) COMPLETE CBC AUTOMATED (11/24/19) COMPLETE CBC W/AUTO DIFF WBC (03/16/20) COMPREHEN METABOLIC PANEL (03/16/20) CT ANGIOGRAPHY CHEST (11/24/19) CT HEAD/BRAIN W/O DYE (01/30/17) CT HRT W/O DYE W/CA TEST (12/07/19) DECALCIFY TISSUE (01/04/19) DRAIN/INJ JOINT/BURSA W/O US (01/26/19) ELECTROCARDIOGRAM TRACING (11/24/19) EMERGENCY DEPT VISIT (11/24/19) EMERGENCY DEPT VISIT (01/30/17) EXTREMITY STUDY (10/25/19) GLYCOSYLATED HEMOGLOBIN TEST (12/11/18) HEMATOCRIT (01/04/19) HEMOGLOBIN (01/04/19) HPV HIGH-RISK TYPES (02/12/19) HT MUSCLE IMAGE SPECT MULT (12/06/19) HYDRATE IV INFUSION ADD-ON (11/24/19) IMMUNIZATION ADMIN (07/31/15) LIPID PANEL (02/11/20) METABOLIC PANEL TOTAL CA (11/24/19) MRI JNT OF LWR EXTRE W/O DYE (11/10/18) OFFICE/OUTPATIENT VISIT EST (12/07/19) OFFICE/OUTPATIENT VISIT EST (10/25/19) OFFICE/OUTPATIENT VISIT EST (01/26/19) OFFICE/OUTPATIENT VISIT EST (11/10/18) OFFICE/OUTPATIENT VISIT NEW (03/18/19) OFFICE/OUTPATIENT VISIT NEW (12/11/18) PPSV23 VACC 2 YRS+ SUBQ/IM (07/31/15) PROTHROMBIN TIME (03/16/20) PT EVAL LOW COMPLEX 20 MIN (01/26/19) RBC ANTIBODY SCREEN (01/04/19) ROUTINE VENIPUNCTURE (03/16/20) TDAP VACCINE 7 YRS/> IM (07/31/15) THER/PROPH/DIAG INJ IV PUSH (11/24/19) THERAPEUTIC ACTIVITIES (03/04/19) THERAPEUTIC EXERCISES (02/25/19) TISSUE EXAM BY PATHOLOGIST (01/04/19) TOTAL KNEE ARTHROPLASTY (01/04/19) TTE W/DOPPLER COMPLETE (11/16/19) URINALYSIS AUTO W/O SCOPE (03/16/20) URINALYSIS AUTO W/SCOPE (03/18/19) URINE CULTURE/COLONY COUNT (12/11/18) VASOPNEUMATIC DEVICE THERAPY (02/25/19) X-RAY EXAM CHEST 1 VIEW (11/24/19) X-RAY EXAM CHEST 2 VIEWS (03/16/20) X-RAY EXAM KNEE 4 OR MORE (02/22/20) X-RAY EXAM OF KNEE 1 OR 2 (01/04/19) X-RAY EXAM OF SHOULDER (08/27/17) Problem List Initiated/Reviewed/Updated: Yes Plan: 74 yo female s/p TKA, Patient is on metoprolol for history SVT.
[2020-04-05] MEDS: Acetaminophen 325 MG Tab PO PRN ×2 (16:50→23:33)
[2020-04-06] MEDS: oxyCODONE 5 MG Tab PO PRN (01:53)
[2020-04-06] MEDS: Acetaminophen 325 MG Tab PO PRN ×2 (07:05→16:28)
[2020-04-06] MEDS: Aspirin 325 MG Tab PO SCH (09:03)
[2020-04-06] MEDS: Metoprolol Succinate 25 MG Tab.ER PO SCH (09:04)
[2020-04-06] MEDS: Rosuvastatin 10 MG Tab PO SCH (09:04)
[2020-04-06] MEDS: Omeprazole 20 MG Cap.CR PO SCH (09:04)
[2020-04-06] MEDS: Polyethylene Glycol 3350 Powder 17 GM Packet PO SCH (09:05)
--- NOTE | 2020-04-06 10:15 | PCM.CONSN ---
- General Info Date of Service: 04/06/20 Admission Dx/Problem (Free Text): Admission Diagnosis/Problem Admission Diagnosis/Problem Knee pain s/p LEFT TOTAL KNEE ARTHROPLASTY - Patient Data Vitals - Most Recent: Last Vital Signs Temp 99.5 F 04/06/20 07:58 Pulse 96 04/06/20 09:04 Resp 22 H 04/06/20 07:58 BP 116/57 L 04/06/20 09:04 Pulse Ox 92 L 04/06/20 07:58 Weight - Most Recent: 99.79 kg I&O - Last 24 Hours: Intake & Output 04/05/20 04/06/20 04/06/20 22:59 06:59 14:59 Intake Total 1000 690 Output Total 1024 1050 Balance -24 -360 Med Orders - Current: Current Medications Acetaminophen (Tylenol) 650 mg PO Q6H PRN PRN Reason: Pain Last Admin: 04/06/20 07:05 Dose: 650 mg Documented by: Al Hydroxide/Mg Hydroxide (Mag-Al Plus) 30 ml PO Q4H PRN PRN Reason: Indigestion Aspirin (Aspirin) 325 mg PO DAILY [facility] Last Admin: 04/06/20 09:03 Dose: 325 mg Documented by: Bisacodyl (Dulcolax) 10 mg RECTAL DAILY PRN PRN Reason: Constipation Diphenhydramine HCl (Benadryl) 25 - 50 mg PO Q6H PRN PRN Reason: Itching Docusate Sodium (Colace) 100 mg PO BID PRN PRN Reason: Constipation Ibuprofen (Motrin) 600 mg PO Q6H PRN PRN Reason: Pain Metoprolol Succinate ([facility] Xl) [facility] [place] Admin: 04/06/20 09:04 Dose: 25 mg Documented by: Omeprazole (Omeprazole) 20 mg PO [facility] Last Admin: 04/06/20 09:04 Dose: 20 mg Documented by: Ondansetron HCl (Zofran) 4 mg IVPUSH Q6H PRN PRN Reason: Nausea/Vomiting Polyethylene Glycol (Miralax) 17 gm PO DAILY [facility] Last Admin: 04/06/20 09:05 Dose: 17 gm Documented by: Rosuvastatin Calcium (Crestor) 20 [facility] [place] Last Admin: 04/06/20 09:04 Dose: 20 mg Documented by: Scopolamine (Transderm-Scop) 1.5 mg TRDERM ONARRIVE [facility] Last Admin: 04/03/20 06:56 Dose: 1.5 mg Documented by: Sodium Chloride (Saline Flush) 10 ml FLUSH ASDIRECTED PRN PRN Reason: Keep Vein Open Sodium Chloride (Saline Flush) 2.5 ml FLUSH ASDIRECTED PRN PRN Reason: Keep Vein Open Discontinued Medications Albuterol (Proventil Neb Soln) 2.5 mg NEB ONETIME PRN PRN Reason: Wheezing Atropine Sulfate (Atropine 0.1 Mg/Ml) 0.5 mg IVPUSH ASDIRECTED PRN PRN Reason: Hypo-perfusion Atropine Sulfate (Atropine 0.1 Mg/Ml) 1 mg IVPUSH ASDIRECTED PRN PRN Reason: Hypo-Perfusion Cefazolin Sodium/Dextrose (Ancef) Confirm Administered Dose 2 gm IV .STK-MED ONE Stop: 04/03/20 07:33 Dextrose/Water (Dextrose 50% In Water) 50 ml IVPUSH ASDIRECTED PRN PRN Reason: Hypoglycemia Epinephrine HCl (Epinephrine 1:10,000) 1 mg IVPUSH ASDIRECTED PRN PRN Reason: ACLS Guidelines Famotidine (Pepcid) 40 mg IVPUSH ONARRIVE [facility] Famotidine (Pepcid) Confirm Administered Dose 40 mg .ROUTE .STK-MED ONE Stop: 04/03/20 05:49 Last Admin: 04/03/20 06:55 Dose: 40 mg Documented by: Fentanyl (Sublimaze) Confirm Administered Dose 100 mcg .ROUTE .STK-MED ONE Stop: 04/03/20 07:24 Fentanyl (Sublimaze) 50 mcg IVPUSH Q5M PRN PRN Reason: Pain Last Admin: 04/03/20 11:31 Dose: 50 mcg Documented by: Tranexamic Acid 1,000 mg/ (Sodium Chloride) 110 mls @ 600 mls/hr IV ASDIRECTED ONE Stop: 04/03/20 08:10 Last Admin: 04/04/20 08:19 Dose: Not Given Documented by: Ropivacaine 49.25 ml/Ketorolac Tromethamine 30 mg/Epinephrine HCl 0.5 mg/Clonidine HCl 80 mcg/ Sodium Chloride 75 mls @ 50 mls/sec INJECT ASDIRECTED [facility] Cefazolin Sodium/Dextrose 2 gm (/ Premix) 50 mls @ 100 mls/hr IV ONCALL [facility] Lactated Ringer's (Ringers, Lactated) 1,000 mls @ 100 mls/hr IV ASDIRECTED [facility] Last Admin: 04/03/20 06:52 Dose: 100 mls/hr Documented by: Famotidine 40 mg/ Sodium (Chloride) 20 mls @ 300 mls/hr IV ONARRIVE ONE Stop: 04/03/20 09:03 Last Admin: 04/03/20 15:47 Dose: Not Given Documented by: Acetaminophen (Ofirmev) Confirm Administered Dose 100 mls @ as directed .ROUTE .STK-MED ONE Stop: 04/03/20 07:19 Cefazolin Sodium/Dextrose 2 gm (/ Premix) 50 mls @ 100 mls/hr IV Q8H [facility] Stop: 04/04/20 00:29 Last Admin: 04/03/20 23:54 Dose: 100 mls/hr Documented by: Ketorolac Tromethamine (Toradol) 15 mg IVPUSH Q6H [facility] Stop: 04/04/20 05:00 Last Admin: 04/04/20 02:55 Dose: 15 mg Documented by: Lidocaine (Xylocaine-Mpf 2%) Confirm Administered Dose 5 ml .ROUTE .STK-MED ONE Stop: 04/03/20 07:25 Midazolam HCl (Versed 1 Mg/Ml) Confirm Administered Dose 2 mg .ROUTE .STK-MED ONE Stop: 04/03/20 07:25 Naloxone HCl (Narcan) 0.1 mg IVPUSH ASDIRECTED PRN PRN Reason: Respiratory Depression Oxycodone HCl (Oxycodone) 5 - 10 mg PO Q4H PRN PRN Reason: Pain Last Admin: 04/06/20 01:53 Dose: 10 mg Documented by: Propofol (Diprivan 20 Ml) Confirm Administered Dose 600 mg .ROUTE .STK-MED ONE Stop: 04/03/20 07:23 Tranexamic Acid (Cyklokapron) Confirm Administered Dose 2,000 mg .ROUTE .STK-MED ONE Stop: 04/03/20 07:19 Sepsis Event Note - Evaluation Sepsis Screening Result: No Definite Risk - Focused Exam Vital Signs: Vital Signs Temp Pulse Pulse Resp BP BP Pulse Ox 04/06/20 09:04 96 116/57 L 04/06/20 07:58 99.5 F 98 22 H 116/71 92 L 04/06/20 04:00 98.6 F 90 18 116/58 L 91 L 04/06/20 00:00 96.8 F L 85 18 113/66 92 L Date Exam was Performed: 04/06/20 Time Exam was Performed: 10:15 Consult PN Assessment/Plan Procedures: Procedures ASSAY OF MAGNESIUM (11/24/19) ASSAY OF NATRIURETIC PEPTIDE (11/24/19) ASSAY OF TROPONIN QUANT (11/24/19) BLOOD TYPING SEROLOGIC ABO (01/04/19) BLOOD TYPING SEROLOGIC RH(D) (01/04/19) CARDIOVASCULAR STRESS TEST (12/06/19) COMPLETE CBC AUTOMATED (11/24/19) COMPLETE CBC W/AUTO DIFF WBC (03/16/20) COMPREHEN METABOLIC PANEL (03/16/20) CT ANGIOGRAPHY CHEST (11/24/19) CT HEAD/BRAIN W/O DYE (01/30/17) CT HRT W/O DYE W/CA TEST (12/07/19) DECALCIFY TISSUE (01/04/19) DRAIN/INJ JOINT/BURSA W/O US (01/26/19) ELECTROCARDIOGRAM TRACING (11/24/19) EMERGENCY DEPT VISIT (11/24/19) EMERGENCY DEPT VISIT (01/30/17) EXTREMITY STUDY (10/25/19) GLYCOSYLATED HEMOGLOBIN TEST (12/11/18) HEMATOCRIT (01/04/19) HEMOGLOBIN (01/04/19) HPV HIGH-RISK TYPES (02/12/19) HT MUSCLE IMAGE SPECT MULT (12/06/19) HYDRATE IV INFUSION ADD-ON (11/24/19) IMMUNIZATION ADMIN (07/31/15) LIPID PANEL (02/11/20) METABOLIC PANEL TOTAL CA (11/24/19) MRI JNT OF LWR EXTRE W/O DYE (11/10/18) OFFICE/OUTPATIENT VISIT EST (12/07/19) OFFICE/OUTPATIENT VISIT EST (10/25/19) OFFICE/OUTPATIENT VISIT EST (01/26/19) OFFICE/OUTPATIENT VISIT EST (11/10/18) OFFICE/OUTPATIENT VISIT NEW (03/18/19) OFFICE/OUTPATIENT VISIT NEW (12/11/18) PPSV23 VACC 2 YRS+ SUBQ/IM (07/31/15) PROTHROMBIN TIME (03/16/20) PT EVAL LOW COMPLEX 20 MIN (01/26/19) RBC ANTIBODY SCREEN (01/04/19) ROUTINE VENIPUNCTURE (03/16/20) TDAP VACCINE 7 YRS/> IM (07/31/15) THER/PROPH/DIAG INJ IV PUSH (11/24/19) THERAPEUTIC ACTIVITIES (03/04/19) THERAPEUTIC EXERCISES (02/25/19) TISSUE EXAM BY PATHOLOGIST (01/04/19) TOTAL KNEE ARTHROPLASTY (01/04/19) TTE W/DOPPLER COMPLETE (11/16/19) URINALYSIS AUTO W/O SCOPE (03/16/20) URINALYSIS AUTO W/SCOPE (03/18/19) URINE CULTURE/COLONY COUNT (12/11/18) VASOPNEUMATIC DEVICE THERAPY (02/25/19) X-RAY EXAM CHEST 1 VIEW (11/24/19) X-RAY EXAM CHEST 2 VIEWS (03/16/20) X-RAY EXAM KNEE 4 OR MORE (02/22/20) X-RAY EXAM OF KNEE 1 OR 2 (01/04/19) X-RAY EXAM OF SHOULDER (08/27/17)
--- NOTE | 2020-04-06 10:26 | PCM.CONSN ---
- General Info Date of Service: 04/06/20 - Review of Systems Systems Review Comment:: denies any shortness of breath, chest pain, cough or fevers - Patient Data Vitals - Most Recent: Last Vital Signs Temp 37.5 C 04/06/20 07:58 Pulse 96 04/06/20 09:04 Resp 22 H 04/06/20 07:58 BP 116/57 L 04/06/20 09:04 Pulse Ox 92 L 04/06/20 07:58 Weight - Most Recent: 99.79 kg I&O - Last 24 Hours: Intake & Output 04/05/20 04/06/20 04/06/20 22:59 06:59 14:59 Intake Total 1000 690 Output Total 1024 1050 Balance -24 -360 Med Orders - Current: Current Medications Acetaminophen (Tylenol) 650 mg PO Q6H PRN PRN Reason: Pain Last Admin: 04/06/20 07:05 Dose: 650 mg Documented by: Al Hydroxide/Mg Hydroxide (Mag-Al Plus) 30 ml PO Q4H PRN PRN Reason: Indigestion Aspirin (Aspirin) 325 mg PO DAILY [facility] Last Admin: 04/06/20 09:03 Dose: 325 mg Documented by: Bisacodyl (Dulcolax) 10 mg RECTAL DAILY PRN PRN Reason: Constipation Diphenhydramine HCl (Benadryl) 25 - 50 mg PO Q6H PRN PRN Reason: Itching Docusate Sodium (Colace) 100 mg PO BID PRN PRN Reason: Constipation Ibuprofen (Motrin) 600 mg PO Q6H PRN PRN Reason: Pain Metoprolol Succinate (Toprol Xl) 25 mg PO [facility] Last Admin: 04/06/20 09:04 Dose: 25 mg Documented by: Omeprazole (Omeprazole) [facility] [place] Last Admin: 04/06/20 09:04 Dose: 20 mg Documented by: Ondansetron HCl (Zofran) 4 mg IVPUSH Q6H PRN PRN Reason: Nausea/Vomiting Polyethylene Glycol (Miralax) 17 gm PO DAILY [facility] Last Admin: 04/06/20 09:05 Dose: 17 gm Documented by: Rosuvastatin Calcium (Crestor) 20 [facility] [place] Last Admin: 04/06/20 09:04 Dose: 20 mg Documented by: Scopolamine (Transderm-Scop) 1.5 mg TRDERM ONARRIVE [facility] Last Admin: 04/03/20 06:56 Dose: 1.5 mg Documented by: Sodium Chloride (Saline Flush) 10 ml FLUSH ASDIRECTED PRN PRN Reason: Keep Vein Open Sodium Chloride (Saline Flush) 2.5 ml FLUSH ASDIRECTED PRN PRN Reason: Keep Vein Open Discontinued Medications Albuterol (Proventil Neb Soln) 2.5 mg NEB ONETIME PRN PRN Reason: Wheezing Atropine Sulfate (Atropine 0.1 Mg/Ml) 0.5 mg IVPUSH ASDIRECTED PRN PRN Reason: Hypo-perfusion Atropine Sulfate (Atropine 0.1 Mg/Ml) 1 mg IVPUSH ASDIRECTED PRN PRN Reason: Hypo-Perfusion Cefazolin Sodium/Dextrose (Ancef) Confirm Administered Dose 2 gm IV .STK-MED ONE Stop: 04/03/20 07:33 Dextrose/Water (Dextrose 50% In Water) 50 ml IVPUSH ASDIRECTED PRN PRN Reason: Hypoglycemia Epinephrine HCl (Epinephrine 1:10,000) 1 mg IVPUSH ASDIRECTED PRN PRN Reason: ACLS Guidelines Famotidine (Pepcid) 40 mg IVPUSH ONARRIVE [facility] Famotidine (Pepcid) Confirm Administered Dose 40 mg .ROUTE .STK-MED ONE Stop: 04/03/20 05:49 Last Admin: 04/03/20 06:55 Dose: 40 mg Documented by: Fentanyl (Sublimaze) Confirm Administered Dose 100 mcg .ROUTE .STK-MED ONE Stop: 04/03/20 07:24 Fentanyl (Sublimaze) 50 mcg IVPUSH Q5M PRN PRN Reason: Pain Last Admin: 04/03/20 11:31 Dose: 50 mcg Documented by: Tranexamic Acid 1,000 mg/ (Sodium Chloride) 110 mls @ 600 mls/hr IV ASDIRECTED ONE Stop: 04/03/20 08:10 Last Admin: 04/04/20 08:19 Dose: Not Given Documented by: Ropivacaine 49.25 ml/Ketorolac Tromethamine 30 mg/Epinephrine HCl 0.5 mg/Clonidine HCl 80 mcg/ Sodium Chloride 75 mls @ 50 mls/sec INJECT ASDIRECTED [facility] Cefazolin Sodium/Dextrose 2 gm (/ Premix) 50 mls @ 100 mls/hr IV ONCALL [facility] Lactated Ringer's (Ringers, Lactated) 1,000 mls @ 100 mls/hr IV ASDIRECTED [facility] Last Admin: 04/03/20 06:52 Dose: 100 mls/hr Documented by: Famotidine 40 mg/ Sodium (Chloride) 20 mls @ 300 mls/hr IV ONARRIVE ONE Stop: 04/03/20 09:03 Last Admin: 04/03/20 15:47 Dose: Not Given Documented by: Acetaminophen (Ofirmev) Confirm Administered Dose 100 mls @ as directed .ROUTE .STK-MED ONE Stop: 04/03/20 07:19 Cefazolin Sodium/Dextrose 2 gm (/ Premix) 50 mls @ 100 mls/hr IV Q8H [facility] Stop: 04/04/20 00:29 Last Admin: 04/03/20 23:54 Dose: 100 mls/hr Documented by: Ketorolac Tromethamine (Toradol) 15 mg IVPUSH Q6H [facility] Stop: 04/04/20 05:00 Last Admin: 04/04/20 02:55 Dose: 15 mg Documented by: Lidocaine (Xylocaine-Mpf 2%) Confirm Administered Dose 5 ml .ROUTE .STK-MED ONE Stop: 04/03/20 07:25 Midazolam HCl (Versed 1 Mg/Ml) Confirm Administered Dose 2 mg .ROUTE .STK-MED ONE Stop: 04/03/20 07:25 Naloxone HCl (Narcan) 0.1 mg IVPUSH ASDIRECTED PRN PRN Reason: Respiratory Depression Oxycodone HCl (Oxycodone) 5 - 10 mg PO Q4H PRN PRN Reason: Pain Last Admin: 04/06/20 01:53 Dose: 10 mg Documented by: Propofol (Diprivan 20 Ml) Confirm Administered Dose 600 mg .ROUTE .STK-MED ONE Stop: 04/03/20 07:23 Tranexamic Acid (Cyklokapron) Confirm Administered Dose 2,000 mg .ROUTE .STK-MED ONE Stop: 04/03/20 07:19 - Exam General: Alert, Oriented Neck: Supple Lungs: Clear to Auscultation, Normal Respiratory Effort Cardiovascular: Regular Rate, Regular Rhythm GI/Abdominal Exam: Normal Bowel Sounds, Soft, Non-Tender, No Distention Extremities: Non-Tender, No Pedal Edema Skin: Warm, Dry, Intact Neurological: No New Focal Deficit Sepsis Event Note - Evaluation Sepsis Screening Result: No Definite Risk - Focused Exam Vital Signs: Vital Signs Temp Pulse Pulse Resp BP BP Pulse Ox 04/06/20 09:04 96 116/57 L 04/06/20 07:58 37.5 C 98 22 H 116/71 92 L 04/06/20 04:00 37.0 C 90 18 116/58 L 91 L 04/06/20 00:00 36.0 C L 85 18 113/66 92 L Date Exam was Performed: 04/06/20 Time Exam was Performed: 10:24 Consult PN Assessment/Plan Procedures: Procedures ASSAY OF MAGNESIUM (11/24/19) ASSAY OF NATRIURETIC PEPTIDE (11/24/19) ASSAY OF TROPONIN QUANT (11/24/19) BLOOD TYPING SEROLOGIC ABO (01/04/19) BLOOD TYPING SEROLOGIC RH(D) (01/04/19) CARDIOVASCULAR STRESS TEST (12/06/19) COMPLETE CBC AUTOMATED (11/24/19) COMPLETE CBC W/AUTO DIFF WBC (03/16/20) COMPREHEN METABOLIC PANEL (03/16/20) CT ANGIOGRAPHY CHEST (11/24/19) CT HEAD/BRAIN W/O DYE (01/30/17) CT HRT W/O DYE W/CA TEST (12/07/19) DECALCIFY TISSUE (01/04/19) DRAIN/INJ JOINT/BURSA W/O US (01/26/19) ELECTROCARDIOGRAM TRACING (11/24/19) EMERGENCY DEPT VISIT (11/24/19) EMERGENCY DEPT VISIT (01/30/17) EXTREMITY STUDY (10/25/19) GLYCOSYLATED HEMOGLOBIN TEST (12/11/18) HEMATOCRIT (01/04/19) HEMOGLOBIN (01/04/19) HPV HIGH-RISK TYPES (02/12/19) HT MUSCLE IMAGE SPECT MULT (12/06/19) HYDRATE IV INFUSION ADD-ON (11/24/19) IMMUNIZATION ADMIN (07/31/15) LIPID PANEL (02/11/20) METABOLIC PANEL TOTAL CA (11/24/19) MRI JNT OF LWR EXTRE W/O DYE (11/10/18) OFFICE/OUTPATIENT VISIT EST (12/07/19) OFFICE/OUTPATIENT VISIT EST (10/25/19) OFFICE/OUTPATIENT VISIT EST (01/26/19) OFFICE/OUTPATIENT VISIT EST (11/10/18) OFFICE/OUTPATIENT VISIT NEW (03/18/19) OFFICE/OUTPATIENT VISIT NEW (12/11/18) PPSV23 VACC 2 YRS+ SUBQ/IM (07/31/15) PROTHROMBIN TIME (03/16/20) PT EVAL LOW COMPLEX 20 MIN (01/26/19) RBC ANTIBODY SCREEN (01/04/19) ROUTINE VENIPUNCTURE (03/16/20) TDAP VACCINE 7 YRS/> IM (07/31/15) THER/PROPH/DIAG INJ IV PUSH (11/24/19) THERAPEUTIC ACTIVITIES (03/04/19) THERAPEUTIC EXERCISES (02/25/19) TISSUE EXAM BY PATHOLOGIST (01/04/19) TOTAL KNEE ARTHROPLASTY (01/04/19) TTE W/DOPPLER COMPLETE (11/16/19) URINALYSIS AUTO W/O SCOPE (03/16/20) URINALYSIS AUTO W/SCOPE (03/18/19) URINE CULTURE/COLONY COUNT (12/11/18) VASOPNEUMATIC DEVICE THERAPY (02/25/19) X-RAY EXAM CHEST 1 VIEW (11/24/19) X-RAY EXAM CHEST 2 VIEWS (03/16/20) X-RAY EXAM KNEE 4 OR MORE (02/22/20) X-RAY EXAM OF KNEE 1 OR 2 (01/04/19) X-RAY EXAM OF SHOULDER (08/27/17) Problem List Initiated/Reviewed/Updated: Yes Plan: 74 yo female s/p L TKA. Would continue metoprolol for history of SVT, O2 sats low this morning would encourage incentive spirometry use.
[2020-04-06] MEDS: Ibuprofen 600 MG Tab PO PRN ×2 (11:08→21:41)
--- NOTE | 2020-04-06 11:50 | PCM.SN.2 ---
- Free Text/Narrative Note: Ortho Note POD#3 left TKA Decreased saturations last night while sleeping No CP or SOB PT progressing Plan: DC oxycodone if opioids suppressing respiratory drive Pain management with ibuprofen and acetaminophen Continue ASA for [address] Sheikh recommended incentive spirometer Will reassess oxygenation tonight to see if resolved DC to home when medically cleared
[2020-04-07] MEDS: Acetaminophen 325 MG Tab PO PRN (00:03)
[2020-04-07] MEDS: Ibuprofen 600 MG Tab PO PRN (04:39)
--- NOTE | 2020-04-07 08:17 | PCM.SN.2 ---
- Free Text/Narrative Note: Ortho Note POD#4 left TKA Pain managed on ibuprofen and acetaminophen No SOB or CP Decreased oxygen saturations resolved yesterday with incentive spirometry O2 sats decreased again at night but patient asymptomatic Given off all narcotics and POD#4, will DC to home with incentive spirometry DC to home today and patient agrees
[2020-04-07] MEDS: Metoprolol Succinate 25 MG Tab.ER PO SCH (08:37)
[2020-04-07] MEDS: Rosuvastatin 10 MG Tab PO SCH (08:37)
[2020-04-07] MEDS: Omeprazole 20 MG Cap.CR PO SCH (08:37)
[2020-04-07] MEDS: Aspirin 325 MG Tab PO SCH (08:37)
[2020-04-07] MEDS: Polyethylene Glycol 3350 Powder 17 GM Packet PO SCH (08:38)
[2020-04-07 08:43] VITALS: PULSE 84
[2020-04-07 09:38] VITALS: BP 118/68
== END 2020-04-07 10:30 | disposition home or self-care (01) | DRG 470 ==
LOC: MW.SDS 06:09 → MW.MS 10:56 → UNDOADMIN 10:56 → MW.MS 10:56 → OBSVTOIN 04-05 15:28
PROVIDERS: ADMIT Orthopaedic Surgery; ATTEND Orthopaedic Surgery
PROC: 0SRD0J9 Replacement of Left Knee Joint with Synthetic Substitute, Cemented, Open Approach (ICD-10-PCS; principal; 2020-04-03)
DX: M17.12 Unilateral primary osteoarthritis, left knee (principal); I47.1 Supraventricular tachycardia; E66.9 Obesity, unspecified; K21.9 Gastro-esophageal reflux disease without esophagitis; I25.10 Atherosclerotic heart disease of native coronary artery without angina pectoris; I45.10 Unspecified right bundle-branch block; Z90.49 Acquired absence of other specified parts of digestive tract; Z11.59 Encounter for screening for other viral diseases; Z87.891 Personal history of nicotine dependence; Z68.36 Body mass index [BMI] 36.0-36.9, adult
CPT/HCPCS: 36415; 73560-26-LT; 73560-LT; 80048; 83735; 85014; 85018; 85025; 86850; 86900; 86901; 97110-GP; 97116-GP; 97161-GP; 97530-GP; A9270-GY; C1776; J0131; J0171; J0690; J0735; J1885; J2001; J2250; J2704; J2795; J3010; J3490; J7050; J7120; U0002